=== PATIENT | female | born 1990 | race African-American/Black ===

== ENCOUNTER 2019-10-21 13:40 | Inpatient (IN) | payer OTHER ==
[2019-10-21] MEDS ORDERED: Ibuprofen 800 MG TAB PO PRN (15:00)
[2019-10-21] MEDS ORDERED: Lidocaine 1% (PF) 30 ML VIAL SC PRN (15:00)
[2019-10-21] MEDS ORDERED: NS / Oxytocin 40 units/1000ml 1,000 ML IV PRN (15:00)
[2019-10-21] MEDS ORDERED: Butorphanol Tartrate 1 MG/ML VIAL SLOW IVP PRN (15:00)
[2019-10-21] MEDS ORDERED: Methylergonovine 0.2 MG/ML VIAL IM PRN (15:00)
[2019-10-21] MEDS ORDERED: hydrALAZINE 20 MG/ML VIAL SLOW IVP PRN (15:00)
[2019-10-21] MEDS ORDERED: Ondansetron PF 4 MG/2 ML Vial IVP PRN (15:00)
[2019-10-21] MEDS ORDERED: Carboprost 250 MCG/ML AMP IM PRN (15:00)
[2019-10-21] MEDS ORDERED: Zolpidem Tartrate 5 MG TAB PO PRN (15:00)
[2019-10-21] MEDS ORDERED: Diphenoxylate HCl/Atropine Tablet PO PRN (15:00)
[2019-10-21] MEDS ORDERED: HYDROcodone/Acetaminophen 5/325 mg Tablet PO PRN (15:00)
[2019-10-21] MEDS ORDERED: Acetaminophen 500 MG TAB PO PRN (15:00)
[2019-10-21] MEDS ORDERED: Misoprostol 200 MCG TAB PR PRN (15:00)
[2019-10-21] MEDS ORDERED: Promethazine HCl 25 MG/ML VIAL IM PRN (15:00)
[2019-10-21 16:10] VITALS: BMI 38.7
[2019-10-21 16:25] LABS: Mean Corpuscular HGB CONC 34.3 g/dL (32.0-36.0); Mean Corpuscular Hemoglobin 30.7 pg (27.0-31.0); Mean Corpuscular Volume 89.6 fL (78.0-98.0); Mean Platelet Volume 8.5 fL (7.4-10.4); Platelet Count 206 thou/uL (130-400); RBC Distribution Width 11.4 % (11.5-14.5); Red Blood Cell (RBC) Count 3.92 mill/uL (4.20-5.40); White Blood Cell (WBC) Count 7.6 thou/uL (4.8-10.8)
[2019-10-21 17:09] LABS: HBSAg Index 0.25 S/CO (0-0.99); Hep B Surf Ag Non-Reactive S/CO (NonReactive)
[2019-10-21 17:11] LABS: Syphilis Antibody Index 7.39 S/CO (<1.00 Non-Reactive)
[2019-10-21] MEDS ORDERED: NS w/ Oxytocin 10 units 500 ML IV SCH (18:30)
[2019-10-21] MEDS ORDERED: Penicillin G Potassium 5 MILL.UNITS in Sodium Chloride 0.9% 100 ML IVPB SCH (18:30)
[2019-10-21 19:38] LABS: Syphilis Antibody INDETERMINATE (Nonreactive)
[2019-10-22] MEDS: Lactated Ringer's 1,000 ML IV SCH (03:29)
[2019-10-22] MEDS: Penicillin G 2.5 MILL.units 2.5 MILL.UNITS in Premix Bag 1 BAG IVPB SCH (10:43)
[2019-10-22] MEDS ORDERED: Fentanyl 4 mcg/Bup 0.1% Cadd 100 ML ONE (12:52)
--- NOTE | 2019-10-22 13:04 | PDOC.LDHP ---
Labor and Delivery H&P Chief complaint: other (oligo/IUGR induction) HPI: 29yo at 38w2d by LMP here for IOL due to oligo/IUGR, EFW < 1%ile. s/p balloon ripening overnight, on pitocin, AROM this am. GBS positive Current gestational age (weeks): 38 Due date: 11/03/19 Dating criteria: last menstrual period Grav: 2 Para: 1 Current complications: IUGR Abnormal US findings: Yes (EFW < 1%ile, oligohydramnios yesterda) Past Medical History: SCT, h/o syphilis s/p tx. Current medications: pre- vitamins Previous surgical history: none Allergies/Adverse Reactions: Allergies Allergy/AdvReac Type Severity Reaction Status Date / Time No Known Allergies Allergy Verified 10/21/19 18:22 Social history: none - Physical Exam Vital signs reviewed and normal: yes General: NAD, breathing through contractions Heart: RRR Lungs: CTAB Abdomen: gravid Extremeties: no edema FHT: category 2, early decelerations, variable decelerations [place] contractions every: 2-3min - Vaginal Exam cm dilated: 5 Effacement: 50% Station: -3 (arom clear) - OB Labs Blood type: O RH: positive Antibody Screen: negative HIV: negative RPR: negative HEPSAg: negative 1 hour GCT: negative GBS: positive Urine drug screen: positive Rubella: immune - Assessment L&D Assessment: medically indicated induction - Plan Plan: admit to L&D, cervical ripening, labor augmentation if indicated, GBS antibiotic prophylaxis, informed consent obtained, anesthesia consult for pain management
[2019-10-22] MEDS ORDERED: Acetaminophen 325 MG TAB PO PRN (13:08)
[2019-10-22] MEDS ORDERED: Promethazine HCl 25 MG/ML VIAL IM PRN ×2 (13:08→13:44)
[2019-10-22] MEDS ORDERED: diphenhydrAMINE 50 MG/ML VIAL IVP PRN (13:08)
[2019-10-22] MEDS ORDERED: Lactated Ringer's 500 ML IV PRN (13:08)
[2019-10-22] MEDS ORDERED: ePHEDrine/0.9% NaCl/PF SYRINGE 50 mg/10 ml SLOW IVP PRN (13:08)
[2019-10-22] MEDS ORDERED: Naloxone HCl 0.4 mg/ml Vial IVP PRN ×2 (13:08)
[2019-10-22] MEDS ORDERED: Ondansetron PF 4 MG/2 ML Vial IVP PRN ×2 (13:08→13:44)
[2019-10-22] MEDS ORDERED: Communication Order-Pharmacy FS PRN (13:15)
[2019-10-22] MEDS ORDERED: Fentanyl 4 mcg/Bupivacaine 0.1% Cassette 100 ML EPIDURAL SCH (13:15)
--- NOTE | 2019-10-22 13:23 | PDOC.OPDEL ---
OB Operative/Delivery Note Delivery Dr/Surgeon: Dana Assist: n/a Pre-Delivery Diagnosis: medically indicated induction Procedure/Post Delivery Dx: spontaneous vaginal delivery Weeks gestation: 38 Anesthesia: none - Findings A Sex: male - 1 min: 8 - 5 min: 9 - Additional Findings/Plan Placenta delivered: spontaneous Repaired Obstetrical Laceration: none Estimated blood loss: 200 Compilations/Other Findings: NC x 1 Post delivery plan: routine recovery
[2019-10-22] MEDS ORDERED: hydrALAZINE 20 MG/ML VIAL SLOW IVP PRN (13:44)
[2019-10-22] MEDS ORDERED: NS / Oxytocin 40 units/1000ml 1,000 ML IV SCH (13:44)
[2019-10-22] MEDS ORDERED: Milk Of Magnesia 30 ML UDCUP PO PRN (13:44)
[2019-10-22] MEDS ORDERED: Preparation H Ointment 28 GM TUBE PR PRN (13:44)
[2019-10-22] MEDS ORDERED: Adacel (T-DAP) 0.5 ML SYRINGE IM ONE (13:44)
[2019-10-22] MEDS ORDERED: Lanolin Ointment 7 GM TUBE TOP PRN (13:44)
[2019-10-22] MEDS ORDERED: HYDROcodone/Acetaminophen 5/325 mg Tablet PO PRN ×2 (13:44)
[2019-10-22] MEDS ORDERED: Benzocaine-Menthol 82.5 ML CAN TOP PRN (13:44)
[2019-10-22] MEDS ORDERED: diphenhydrAMINE 25 MG CAP PO PRN (13:44)
[2019-10-22] MEDS ORDERED: Bisacodyl 10 MG SUPP PR PRN (13:44)
[2019-10-22] MEDS: Ibuprofen 800 MG TAB PO SCH (21:19)
[2019-10-22] MEDS: Docusate Calcium (SURFAK) 240 MG CAP PO SCH (21:19)
[2019-10-23] MEDS: Ferrous Sulfate 325 MG TAB PO SCH ×3 (01:01→13:35)
[2019-10-23] MEDS: Ibuprofen 800 MG TAB PO SCH ×4 (01:02→21:59)
[2019-10-23] MEDS: Lactated Ringer's 1,000 ML IV SCH (01:39)
[2019-10-23] MEDS: Penicillin G 2.5 MILL.units 2.5 MILL.UNITS in Premix Bag 1 BAG IVPB SCH ×2 (01:39→01:40)
[2019-10-23] MEDS: Prenatal Vitamin 1 TAB PO SCH (08:18)
[2019-10-23] MEDS: Docusate Calcium (SURFAK) 240 MG CAP PO SCH ×2 (08:18→21:59)
[2019-10-24] MEDS: Ibuprofen 800 MG TAB PO SCH ×2 (05:16→14:28)
[2019-10-24] MEDS: Prenatal Vitamin 1 TAB PO SCH (08:31)
[2019-10-24] MEDS: Ferrous Sulfate 325 MG TAB PO SCH ×2 (08:32→17:08)
[2019-10-24] MEDS: Docusate Calcium (SURFAK) 240 MG CAP PO SCH (08:32)
--- NOTE | 2019-10-24 14:53 | PDOC.PP ---
Post Progress Note Post Day #: 2 Subjective: c/o blister on left nipple, not painful, not bleeding PO intake tolerated: yes Flatus: yes Ambulation: yes Vital Signs (12 hours) Temp Pulse Resp BP Pulse Ox 10/24/19 08:12 98.0 F 82 20 128/70 98 Weight Weight 278 lb - Physical Examination General: NAD Respiratory: non-labored breathing Abdominal: no distention, appropriately TTP Fundus firm & at: umb Skin: no rash Neurological: no gross focal deficits Psychiatric: normal affect Result Diagrams: 10/21/19 16:18 Additional Labs: Post Labs Blood Type O POSITIVE 10/21/19 17:26 Hep Bs Antigen Non-Reactive S/CO (NonReactive) 10/21/19 16:18 Rubella IgG Antibody 2.00 index (Immune >0.99) 10/21/19 16:18 - Assessment/Plan PPD2 s/p TSVD VSSAF Small areolar blister, rec warm compress, cont pumping and lanolin cream Otherwise no issues, pain controlled, minimal bleeding. Rh pos RImm Baby in NICU DC home FU 6w, pt desires nexplanon
[2019-10-24 19:55] VITALS: BP 139/67; TEMP 99
== END 2019-10-24 19:55 | disposition home or self-care (01) | DRG 807 ==
LOC: L&D 13:40 → 3SW 10-22 18:54
PROVIDERS: ADMIT Student in an Organized Health Care Education/Training Program; ATTEND Student in an Organized Health Care Education/Training Program
PROC: 10907ZC Drainage of Amniotic Fluid, Therapeutic from Products of Conception, Via Natural or Artificial Opening (ICD-10-PCS; principal; 2019-10-22)
PROC: 10E0XZZ Delivery of Products of Conception, External Approach (ICD-10-PCS; 2019-10-22)
PROC: 3E033VJ Introduction of Other Hormone into Peripheral Vein, Percutaneous Approach (ICD-10-PCS; 2019-10-22)
DX: O36.5930 Maternal care for other known or suspected poor fetal growth, third trimester, not applicable or unspecified (principal); Z37.0 Single live birth; O99.824 Streptococcus B carrier state complicating childbirth; O69.81X0 Labor and delivery complicated by cord around neck, without compression, not applicable or unspecified; Z3A.38 38 weeks gestation of pregnancy
CPT/HCPCS: 36415; 85027; 86593; 86762; 86780; 86850; 86900; 86901; 87340; 88307; C1726; J2405; J2540; J2590; J3490